=== PATIENT | female | born 1955 | race Caucasian/White ===

== ENCOUNTER 2018-09-15 15:14 | Outpatient (CLI) | payer MEDICARE | END 2018-09-15 15:15 | disposition home or self-care (01) | LOC: CTENTCT 15:14 | PROVIDERS: ATTEND Specialist | DX: J32.9 Chronic sinusitis, unspecified (principal) | CPT/HCPCS: 70486 ==

== ENCOUNTER 2019-07-03 14:21 | Emergency (ER) | payer MEDICARE ==
[2019-07-03 15:05] LABS: #Eosinphils 0.2 thou/uL (0.0-0.7); #Lymphocytes 1.5 thou/uL (1.20-3.40); #Monocytes 0.2 thou/uL (0.11-0.59); #Neutrophils 2.8 thou/uL (1.40-6.50); %Basophils 0.2 % (0.0-1.0); %Lymphocytes 31.6 % (21.0-51.0); %Monocytes 4.1 % (0.0-10.0); %Neutrophils 59.1 % (42.0-75.0); Hemoglobin 13.1 g/dL (12.0-16.0); Mean Corpuscular HGB CONC 34.3 g/dL (32.0-36.0); Mean Corpuscular Hemoglobin 32.9 pg (27.0-31.0); Mean Platelet Volume 9.7 fL (7.4-10.4); Platelet Count 22 thou/uL (130-400); RBC Distribution Width 11.9 % (11.5-14.5); Red Blood Cell (RBC) Count 3.97 mill/uL (4.20-5.40); White Blood Cell (WBC) Count 4.7 thou/uL (4.8-10.8)
== END 2019-07-03 17:32 | disposition home or self-care (01) ==
LOC: ERS 14:21
DX: D69.3 Immune thrombocytopenic purpura (principal); I10 Essential (primary) hypertension; Z87.891 Personal history of nicotine dependence; Z79.899 Other long term (current) drug therapy
CPT/HCPCS: 36430; 85025; 86850; 86900; 86901; 99283; P9035; 36415

== ENCOUNTER 2019-07-17 07:05 | Outpatient (CLI) | payer MEDICARE ==
--- NOTE | 2019-07-17 07:47 | ULT ---
Spleen ultrasound: 07/17/2019 COMPARISON: None HISTORY: Evaluate spleen size FINDINGS: Focused ultrasound of the left upper quadrant provided. The spleen measures 9.1 x 4.3 x 3.9 cm, within normal limits. IMPRESSION: Spleen is normal in size.
--- NOTE | 2019-07-17 08:08 | RAD ---
Chest 2 views HISTORY: Cough. FINDINGS: Cardiac silhouette and pulmonary vasculature are unremarkable. Mediastinum is midline. No c onfluent airspace consolidation, pneumothorax, or pleural fluid. Degenerative changes thoracic spine. IMPRESSION: No active cardiopulmonary abnormalities are demonstrated.
== END 2019-07-17 07:06 | disposition home or self-care (01) ==
LOC: BICULT 07:05
PROVIDERS: ATTEND Internal Medicine Medical Oncology
DX: R05 Cough (principal); R16.1 Splenomegaly, not elsewhere classified; D69.3 Immune thrombocytopenic purpura
CPT/HCPCS: 71046; 76705

== ENCOUNTER 2019-09-10 12:09 | Inpatient (IN) | payer MEDICARE ==
[2019-09-10 13:07] LABS: Bilirubin Negative (Negative); Blood, Urine Negative (Negative); Clarity Clear (Clear); Glucose, Urine (Dipstick) Normal (Negative); Leukocyte Negative Leu/uL (Negative); Nitrite Negative (Negative); Protein, Urine (Dipstick) 10 mg/dL (Neg-Trace); Urobilinogen Normal mg/dL (Less than 2)
[2019-09-10 13:09] LABS: Hemoglobin 16.3 g/dL (12.0-16.0); Mean Corpuscular HGB CONC 33.4 g/dL (32.0-36.0); Mean Corpuscular Hemoglobin 32.7 pg (27.0-31.0); Mean Corpuscular Volume 97.9 fL (78.0-98.0); RBC Distribution Width 12.9 % (11.5-14.5); Red Blood Cell (RBC) Count 4.98 mill/uL (4.20-5.40); White Blood Cell (WBC) Count 10.9 thou/uL (4.8-10.8)
[2019-09-10 13:15] LABS: Band 58 % (5-11); Lymphocytes 14 % (21-51); MDiff Complete? YES; Monocytes 1 % (0-10); Neutrophil 16 % (42-75); Platelet Count 106 thou/uL (130-400); Platelet Morphology Comment Appears Decreased; Polychromasia MODERATE = 3-4 cells (100X) (0-2/hpf); Reactive Lymphocytes 11 % (0-10); Reflex for Review?? NO
[2019-09-10 13:16] LABS: ALT (SGPT) 19 U/L (8-55); AST (SGOT) 13 U/L (5-34); Alkaline Phosphatase 66 U/L (40-110); Anion Gap 18 mmol/L (10-20); BUN (Urea Nitrogen) 13 mg/dL (9.8-20.1); Bilirubin, Total 1.6 mg/dL (0.2-1.2); Calc. Creatinine Clearance 0 mL/min (70-130); Calcium 9.8 mg/dL (7.8-10.44); Carbon Dioxide 24 mmol/L (23-31); Chloride 100 mmol/L (98-107); Estimated GFR-MDRD 67; Globulin 3.5 g/dL (2.4-3.5); Glucose 148 mg/dL (80-115); Potassium 3.6 mmol/L (3.5-5.1); Protein, Total 7.5 g/dL (6.0-8.3); Sodium 138 mmol/L (136-145)
[2019-09-10] MEDS ORDERED: Morphine 4 MG/ML VIAL ONE ×2 (13:28→14:15)
[2019-09-10] MEDS ORDERED: Ondansetron PF 4 MG/2 ML Vial ONE (13:28)
--- NOTE | 2019-09-10 13:55 | CT ---
EXAM: CT Abdomen Pelvis W Con PROVIDED CLINICAL HISTORY: Abdominal pain COMPARISON: None FINDINGS: The visualized lung bases are free of significant opacity. There is conspicuous fluid distention of t he stomach, a small hiatal hernia and evidence for distal esophageal fluid. Pneumoperitoneum is demonstrated. There is focal inflammatory fat stranding and extraluminal gas seen at the mid sigmoid colon. Numerous colonic diverticula are seen. There is a small amount of free fluid present about the right liver margin inferiorly. There is conspicuous fluid in the right paraco lic gutter. The liver, spleen, pancreas, kidneys and adrenal glands demonstrate an unremarkable CT appearance. Th ere are a few mildly prominent fluid-filled loops of small bowel likely reactive ileus. No evidence for bowel obstruction. Vascular calcifications are noted. The osseous structures demonstrate no concerning lytic or blastic lesions. IMPRESSION: 1. Findings compatible with perforated sigmoid diverticulitis. Results communicated to Dr. Pulliam 1:5 2 PM 09/10/2019. 2. Fluid density within the distal esophagus presumably reflects gastroesophageal reflux.
[2019-09-10] MEDS ORDERED: Cefepime 2 GM VIAL ONE (14:15)
[2019-09-10] MEDS ORDERED: Piperacillin/Tazobactam 4.5 GM VIAL ONE (14:15)
[2019-09-10] MEDS ORDERED: Iopamidol-370 76% 500 ML 1 ML ONE (14:37)
[2019-09-10] MEDS ORDERED: Acetaminophen 500 MG TAB ONE (14:55)
[2019-09-10] MEDS ORDERED: Ondansetron ODT 4 MG TAB PO PRN (15:33)
[2019-09-10] MEDS ORDERED: Acetaminophen 325 MG TAB PO PRN (15:33)
[2019-09-10] MEDS ORDERED: Ondansetron PF 4 MG/2 ML Vial IVP PRN (15:33)
[2019-09-10 15:41] LABS: Lactic Acid 3.3 mmol/L (0.5-2.2)
[2019-09-10] MEDS ORDERED: Sodium Chloride 0.9% 1,000 ML IV SCH (15:45)
[2019-09-10] MEDS ORDERED: Morphine 4 MG/ML VIAL SLOW IVP PRN (15:49)
[2019-09-10] MEDS ORDERED: Morphine 2 MG/ML SYRINGE SLOW IVP PRN ×2 (15:49→16:21)
--- NOTE | 2019-09-10 16:07 | PDOC.FPRHP ---
- History of Present Illness Chief Complaint: abdominal pain History of Present Illness: Pt is a 64-yo F w/ Hx of ITP, HTN, SIDNEY who presents after having abdominal pain starting around 2030 last night. Pain is diffuse and stabbing, described as severe. She feels bloated. Denies passing flatus, constipation, or diarrhea. Last BM was last night and well formed. She vomited 2x of [place] food last night. No vomiting today. She has never had diverticulitis before. Reports her last colonoscopy was 6-7 years ago and said everything was normal. Told to return in 10 years. Denies hematochezia, hematuria. + dysuria at times. ED Course: Received 1L NS in ER, cefepime, zosyn, morphine, zofran. - History PMHx: ITP, HTN, SIDNEY on CPAP, severe outdoor allergies, morbid obesity PSHx: x2. Colonoscopy x1. FHx: Father, dcsd: HTN Mother, dcsd: [place] x1 Social: Former smoker: hx of 10 pack years. Denies alcohol and drug use. - Review of Systems General: denies: fever/chills, weight/appetite/sleep changes, fatigue Eyes: denies: vision changes ENT: reports: nasal congestion, rhinorrhea (chronic allergies) Respiratory: denies: cough, congestion, shortness of breath Cardiovascular: reports: other (lightheaded). denies: chest pain, edema, orthopnea Gastrointestinal: reports: nausea, vomiting, abdominal pain. denies: diarrhea, constipation, GI bleeding Genitourinary: reports: dysuria Skin: denies: rashes Musculoskeletal: reports: arthritis/arthralgias (intermittent w/ ITP symptoms). denies: pain, swelling Neurological: denies: syncope Psychological: denies: anxiety, depression - Vital signs BP: 93/51 HR: 115 RR: 30 Temp: afebrile Pox: 94% on 1L NC - Physical Exam Constitutional: NAD, awake, alert and oriented HEENT: normocephalic and atraumatic, conjunctiva clear, grossly normal vision, grossly normal hearing, MMM, oropharynx clear Neck: supple, trachea midline, no LAD, no thyromegaly Heart: normal S1/S2 (tachycardia), no murmurs/rubs/gallops, pulses present, no edema Lungs: CTAB, no respiratory distress, no wheezing -Abdomen: markedly taut and distended, marked TTP diffusely, no rebound tenderness, hypertympanic on percussion, hypoactive bowel sounds. Musculoskeletal: normal structure, normal tone Neurological: no focal deficit Skin: no rash/lesions Heme/Lymphatic: no unusual bruising or bleeding, no purpura Psychiatric: normal mood and affect FMR H&P: Results - Labs Result Diagrams: 09/11/19 03:33 09/11/19 03:33 Lab results: WBC 10.9 thou/uL (4.8-10.8) H 09/10/19 12:26 Hgb 16.3 g/dL (12.0-16.0) H 09/10/19 12:26 Hct 48.8 % (36.0-47.0) H 09/10/19 12:26 MCV 97.9 fL (78.0-98.0) 09/10/19 12:26 Plt Count 106 thou/uL (130-400) L 09/10/19 12:26 Band Neuts % (Manual) 58 % (5-11) H 09/10/19 12:26 Sodium 138 mmol/L (136-145) 09/10/19 12:26 Potassium 3.6 mmol/L (3.5-5.1) 09/10/19 12:26 Chloride 100 mmol/L (98-107) 09/10/19 12:26 Carbon Dioxide 24 mmol/L (23-31) 09/10/19 12:26 BUN 13 mg/dL (9.8-20.1) 09/10/19 12:26 Creatinine 0.85 mg/dL (0.6-1.1) 09/10/19 12:26 Glucose 148 mg/dL (80-115) H 09/10/19 12:26 Lactic Acid 3.3 mmol/L (0.5-2.2) H 09/10/19 15:16 Calcium 9.8 mg/dL (7.8-10.44) 09/10/19 12:26 Total Bilirubin 1.6 mg/dL (0.2-1.2) H 09/10/19 12:26 AST 13 U/L (5-34) 09/10/19 12:26 ALT 19 U/L (8-55) 09/10/19 12:26 Alkaline Phosphatase 66 U/L (40-110) 09/10/19 12:26 Serum Total Protein 7.5 g/dL (6.0-8.3) 09/10/19 12:26 Albumin 4.0 g/dL (3.4-4.8) 09/10/19 12:26 Lipase 19 U/L (8-78) 09/10/19 12:29 Urine Ketones Negative mg/dL (Negative) 09/10/19 12:44 Urine Blood Negative (Negative) 09/10/19 12:44 Urine Nitrite Negative (Negative) 09/10/19 12:44 Ur Leukocyte Esterase Negative Mario Alberto/uL (Negative) 09/10/19 12:44 - EKG Interpretation EKG: sinus tachycardia, possible ST depression in inferior leads - Radiology Interpretation CT scan - abdomen Status: image reviewed by me, report reviewed by me FMR H&P: A/P - Problem List (1) Diverticulitis large intestine Current Visit: Yes Status: Acute Code(s): K57.32 - DVTRCLI OF LG INT W/O PERFORATION OR ABSCESS W/O BLEEDING (2) HTN (hypertension) Current Visit: Yes Status: Acute Code(s): I10 - ESSENTIAL (PRIMARY) HYPERTENSION (3) SIDNEY on CPAP Current Visit: Yes Status: Acute Code(s): G47.33 - OBSTRUCTIVE SLEEP APNEA ( ADULT) (PEDIATRIC); Z99.89 - DEPENDENCE ON OTHER ENABLING MACHINES AND DEVICES (4) Chronic ITP (idiopathic thrombocytopenia) Current Visit: Yes Status: Acute Code(s): D69.3 - IMMUNE THROMBOCYTOPENIC PURPURA - Plan 64-yo F w/ multiple comorbidities admitted for: Sepsis 2/2 acute diverticulitis Perforation of Sigmoid Colon - lactic acidosis - tachycardic, hypotensive meeting sepsis criteria - CT abdomen: showing free air and free fluid indicating perforation of sigmoid colon - Gen surg consulted, Dr. Sullivan would like to pursue non-operative mgmt at this time. Appreciate recs. - Received cefepime and zosyn in ER, will give levaquin and flagyl IV - Fluid resuscitate w/ LR and 200mL/hr - monitor on IMCU - pain control: ENGINEERING TECHNICIAN PARKING pump dilaudid per Surgery HTN - hold home meds until hypotension improves SIDNEY - CPAP at night. Does not know settings. ITP - Recently diagnosed 2018. Denies hx of influenza or H1N1 infection. - Takes steroids for 4 days per month. Yesterday 09/08 was supposed to be her 4th day of steroids but pt was afraid to take the medicine due to N/V Severe seasonal allergies - continue doxepin and montelukast Obesity Code: FULL Diet: NPO, strict VTE ppx: SCDs only due to ITP/low platelets at baseline Fluids: LR at 200 mL/hr GI ppx: pepcid Abx: metronidazole Dispo: admit to IMCU. LOS > 48 H. Disposition/LOS: admit to surgical floor as inpatient. LOS > 48 H. FMR H&P: Upper Level - Pertinent history 64 yo F w/ PMH of HTN, OTP whp presents with one day history of acute onset abd pain with NV. Pt reports abd pain started yesterday evening and worsened throughout the night. She had ct abd pelvis in ED which showed perforated sigmpoid diverticulitis. Gen surg consulted in ED, recommends medical managment with IV abx and pain control. - Pertinent findings ROS: As above PE: Gen: Mod discomfort, tachycardic and borderline BP HEENT: NCAT, PERRLA, EOMI Resp: CTABL CV: Tachycardic, regular rhythm no mrg Abd: Distended, hypertympanic, diffuse guarding, no rebound tenderness Ext: No clubbing cyanosiis or edema, good pulses throughout Neuro: No focal deficit Psych: Normal mood affect - Plan Date/Time: 09/10/19 1605 I, Cornell Luis DO, have evaluated this patient and agree with findings/ plan as outlined by intern product marketing manager resident. Pertinent changes/additions are listed here. 1) Acute sigmoid diverticulitis with perforation - gen surg consulted, appreciate recommendations - levaquin and flagyl IV abx - monitor for worsening abd exam, serial exams 2) Lactic acidosis - 2/2 above - aggressive IVF hydration and trend Dispo: Guarded, admit to IMCU and monitor bp. Aggressive IVF hydration and serial abd exams. Cont IV abx and pain control per gen surg. Addendum - Attending - Attending Attestation Date/Time: 09/11/19 1036 I personally evaluated the patient and discussed the management with Dr. Ward yesterday. I agree with the History, Examination, Assessment and Plan documented above with any addition or exceptions noted below. See my separate note at time of admission.
[2019-09-10 16:35] LABS: Troponin I Less than 0.010 ng/mL (< 0.028)
[2019-09-10] MEDS ORDERED: Naloxone HCl 0.4 mg/ml Vial IV PRN (16:39)
[2019-09-10] MEDS ORDERED: diphenhydrAMINE 25 MG CAP PO PRN (16:39)
[2019-09-10] MEDS ORDERED: diphenhydrAMINE 50 MG/ML VIAL IVP PRN (16:39)
[2019-09-10] MEDS ORDERED: diphenhydrAMINE 50 MG/ML VIAL IM PRN (16:39)
[2019-09-10] MEDS ORDERED: Promethazine HCl 25 MG/ML VIAL IM PRN (16:39)
[2019-09-10] MEDS ORDERED: HYDROmorphone 0.5 MG/0.5 ML SYRINGE ONE (16:44)
[2019-09-10] MEDS ORDERED: Communication Order-Pharmacy FS SCH (16:45)
--- NOTE | 2019-09-10 17:25 | PDOC.BPN ---
- Brief Progress Note Date/Time: 09/10/19 6230 I personally evaluated the patient and discussed the management with Dr. Ward and Toby. I agree with the History, Examination, Assessment and Plan documented above with any addition or exceptions noted below. We are treating for perforated diverticulitis with empiric coverage for aerobes and anaerobes. We are admitting to IMCU for close monitoring in light of her tachycardia and borderline low blood pressure. We appreciate general surgery's recommendations and care.
[2019-09-10 17:35] LABS: Lactic Acid 3.1 mmol/L (0.5-2.2)
[2019-09-10] MEDS ORDERED: Lactated Ringer's 1,000 ML IV SCH (18:30)
[2019-09-10] MEDS ORDERED: HYDROmorphone 10 mg/100 ml CADD IVPB PRN (18:45)
[2019-09-10] MEDS: Lactated Ringer's 1,000 ML IV SCH (21:24)
[2019-09-10] MEDS: metroNIDAZOLE 500 MG in Premix Bag 1 BAG IVPB SCH (21:27)
[2019-09-10] MEDS: Famotidine/PF 20 mg/2ml Vial SLOW IVP SCH (21:32)
[2019-09-10] MEDS ORDERED: metroNIDAZOLE 500 MG in Premix Bag 1 BAG IVPB SCH (22:00)
[2019-09-10] MEDS ORDERED: Cefepime 2 GM in Sodium Chloride 0.9% 100 ML IVPB SCH (22:00)
[2019-09-10 22:50] VITALS: BMI 41.1
--- NOTE | 2019-09-10 23:15 | CON ---
DATE OF CONSULTATION: 09/10/2019 HISTORY OF PRESENT ILLNESS: The patient is a 64-year-old woman who presented to the emergency department with acute onset of abdominal pain approximately 2000 hours previous night, then increased nerve pain and she started having some abdominal distention. She was brought to the emergency department by her , where she underwent evaluation and examination. Then, her CT was consistent with a perforated sigmoid diverticulum. She would be admitted by the [facility], and we were asked to see her in consultation to evaluate her for possible surgical intervention. The patient denied vomiting, though she did have episodes of nausea. She denies passing flatus in the last 12 hours. She denies diarrhea or ill contacts. Her last bowel movement was last night. She denies fevers, chills, or loss of weight. ALLERGIES: NO KNOWN DRUG ALLERGIES. CURRENT MEDICATIONS: Valsartan. PAST MEDICAL HISTORY: Hypertension, ITP, borderline anemia, and multiple environmental allergies. PAST SURGICAL HISTORY: x2. The patient had a colonoscopy approximately 10 years ago. SOCIAL HISTORY: The patient quit smoking greater than 10 years ago. She drinks rarely. Denies drug use. She lives at home with family. REVIEW OF SYSTEMS: A 10-point review of systems is negative except as otherwise stated. PHYSICAL EXAMINATION: VITAL SIGNS: Blood pressure 137/76, heart rate 111, respirations 17, oxygen saturation 98% on 2 L via nasal cannula, and temperature 98.4. GENERAL: The patient is resting comfortably in bed. She is currently in [facility] bed. She is awake, alert, conversant, appropriate. HEENT: Unremarkable. LUNGS: Clear to auscultation bilaterally. HEART: Regular rate and rhythm. ABDOMEN: Soft, slightly distended with tenderness to palpation to her right lower quadrant. She has no gross peritoneal signs, but definitely has tenderness to palpation in the right lower quadrant, plus-minus rebound tenderness on the right. No rebound tenderness on the left. Negative Rovsing sign. Bowel sounds are hypoactive. EXTREMITIES: Neurovascularly intact x4. LABORATORY FINDINGS: White blood cell count 10.9, hemoglobin 16.3, hematocrit 48.4, and platelets 106. Sodium 138, potassium 3.6, chloride 100, CO2 of 24, BUN 13, creatinine 0.85, glucose 148, and lactic acid 3.1. Troponin negative x2. Lipase 19. LFTs are unremarkable with the exception of total bilirubin of 1.6. Urinalysis is unremarkable. RADIOGRAPHIC REPORTS: CT of the abdomen and pelvis with IV contrast shows findings compatible with perforated sigmoid diverticulitis. ASSESSMENT: 1. Acute abdominal pain. 2. Perforated sigmoid diverticulitis. PLAN: Will be to keep the patient n.p.o., IV antibiotics per the primary team. Bowel rest. Pain control currently with Dilaudid DEPUTY SHERIFF LIEUTENANT. Serial exams, repeat labs in the morning. We will re-evaluate her in the morning. The patient was evaluated in the emergency department by Dr. Sullivan. Dr. Sullivan discussed the treatment plan with the patient to include possible surgical intervention if conservative treatment fails. This included laparotomy with sigmoid colon resection with colostomy. Job ID: [id number]
[2019-09-11 04:01] LABS: Lactic Acid 1.9 mmol/L (0.5-2.2)
[2019-09-11] MEDS: metroNIDAZOLE 500 MG in Premix Bag 1 BAG IVPB SCH ×3 (04:08→21:11)
[2019-09-11] MEDS: Lactated Ringer's 1,000 ML IV SCH ×5 (04:08→23:06)
[2019-09-11 04:30] LABS: ALT (SGPT) 16 U/L (8-55); AST (SGOT) 25 U/L (5-34); Albumin 2.7 g/dL (3.4-4.8); Alkaline Phosphatase 47 U/L (40-110); Anion Gap 11 mmol/L (10-20); BUN (Urea Nitrogen) 13 mg/dL (9.8-20.1); Bilirubin, Total 1.6 mg/dL (0.2-1.2); Calc. Creatinine Clearance 139 mL/min (70-130); Calcium 8.3 mg/dL (7.8-10.44); Carbon Dioxide 22 mmol/L (23-31); Chloride 106 mmol/L (98-107); Estimated GFR-MDRD 87; Glucose 101 mg/dL (80-115); Potassium 3.9 mmol/L (3.5-5.1); Protein, Total 5.7 g/dL (6.0-8.3); Sodium 135 mmol/L (136-145)
[2019-09-11 04:32] LABS: Band 56 % (5-11); Dohle Bodies SLIGHT; Hemoglobin 13.9 g/dL (12.0-16.0); Lymphocytes 19 % (21-51); MDiff Complete? YES; Mean Corpuscular HGB CONC 32.6 g/dL (32.0-36.0); Mean Corpuscular Hemoglobin 32.6 pg (27.0-31.0); Mean Corpuscular Volume 99.8 fL (78.0-98.0); Mean Platelet Volume 8.6 fL (7.4-10.4); Metamyelocyte 12 % (0-0); Monocytes 2 % (0-10); Neutrophil 11 % (42-75); Platelet Count 67 thou/uL (130-400); Platelet Morphology Comment Appears Decreased; Red Blood Cell (RBC) Count 4.26 mill/uL (4.20-5.40); White Blood Cell (WBC) Count 8.6 thou/uL (4.8-10.8)
--- NOTE | 2019-09-11 05:54 | PDOC.FM ---
- Subjective Subjective: Pt's pain is improved this morning. Denies N/V. Still somewhat tachycardic overnight w/ BP ranging from SBP 80-130. - Objective MAR Reviewed: Yes Vital Signs & Weight: Vital Signs (12 hours) Temp 09/11/19 04:00 98.2 F 09/10/19 23:18 98.2 F 09/10/19 19:54 100.1 F H Weight Weight 108.522 kg Most Recent Monitor Data Heart Rate from ECG 109 NIBP 92/71 NIBP BP-Mean 78 Respiration from ECG 21 SpO2 99 Result Diagrams: 09/11/19 03:33 09/11/19 03:33 Phys Exam - Physical Examination Constitutional: NAD Respiratory: no wheezing, clear to auscultation bilateral tachycardic, no murmur distended, softer than previous exam, hypoactive BS, mod TTP RLQ>other area Musculoskeletal: no edema, pulses present Psychiatric: normal affect, A&O x 3 Dx/Plan (1) Diverticulitis large intestine Code(s): K57.32 - DVTRCLI OF LG INT W/O PERFORATION OR ABSCESS W/O BLEEDING Status: Acute (2) HTN (hypertension) Code(s): I10 - ESSENTIAL (PRIMARY) HYPERTENSION Status: Acute (3) SIDNEY on CPAP Code(s): G47.33 - OBSTRUCTIVE SLEEP APNEA (ADULT) (PEDIATRIC); Z99.89 - DEPENDENCE ON OTHER ENABLING MACHINES AND DEVICES Status: Acute (4) Chronic ITP (idiopathic thrombocytopenia) Code(s): D69.3 - IMMUNE THROMBOCYTOPENIC PURPURA Status: Acute - Plan Plan: 64-yo F w/ multiple comorbidities admitted for: Sepsis 2/2 acute diverticulitis Perforation of Sigmoid Colon - lactic acidosis: resolved - CT abdomen: showing free air and free fluid indicating perforation of sigmoid colon - Gen surg consulted, Dr. Sullivan would like to pursue non-operative mgmt. Appreciate recs. - Received cefepime and zosyn in ER, will give levaquin and flagyl IV - Fluid resuscitate w/ LR at 200mL/hr - monitor on IMCU - pain control: MANUFACTURING SOFTWARE ENGINEER pump dilaudid per Surgery HTN - hold home meds until hypotension improves SIDNEY - CPAP at night. Does not know settings. ITP - Recently diagnosed 2018. Denies hx of influenza or H1N1 infection. - Takes steroids for 4 days per month. Yesterday 09/08 was supposed to be her 4th day of steroids but pt was afraid to take the medicine due to N/V Severe seasonal allergies - continue doxepin and montelukast Obesity Code: FULL Diet: NPO, strict VTE ppx: SCDs only due to ITP/low platelets at baseline Fluids: LR at 200 mL/hr GI ppx: pepcid Abx: metronidazole Dispo: admit to IMCU. LOS > 48 H. Disposition/LOS: admit to surgical floor as inpatient. LOS > 48 H.
[2019-09-11] MEDS: Famotidine/PF 20 mg/2ml Vial SLOW IVP SCH ×2 (09:30→21:11)
--- NOTE | 2019-09-11 11:24 | PRG ---
DATE OF SERVICE: 09/11/2019 SUBJECTIVE: Ms. Elliott is a pleasant 64-year-old lady, who was admitted yesterday with a perforated diverticulum. She demonstrated free air under the diaphragms. She was seen in consultation by the Surgery Service and they have elected conservative management with NG suctioning, IV fluids and broad-spectrum antibiotics. Should she deteriorate, She would be taken for surgery. OBJECTIVE: GENERAL: This morning, she is awake and alert. Still in a great deal of pain, but this is well managed with her pain pump. VITAL SIGNS: Stable. Blood pressure is 104/67, respirations are 20, and her pulse rate is 82. ABDOMEN: plate drying machine tender and distended and unchanged from yesterday. We will continue to follow with the Surgery Service with close attention to her electrolytes and any signs of infection. Job ID: [id number]
--- NOTE | 2019-09-11 12:44 | PRG ---
DATE OF SERVICE: 09/11/2019 SUBJECTIVE: The patient is a 64-year-old woman, presented to the emergency department with acute onset of abdominal pain, last night. She, at that time endorsed abdominal distension. Yesterday, she received morphine and was started on Dilaudid pump. She states that with this, her abdominal pain is more tolerable. Otherwise, she had no acute symptomatic hypertensive events last night, but it was noted that her blood pressure fluctuated by the nurse. She remained tachycardic overnight as well. She denies having a bowel movement at this time and has not passed flatus. She denied fevers or chills. OBJECTIVE: VITAL SIGNS: Heart rate 108, blood pressure 100/67, respiratory rate 22, oxygen saturation 100% on 2 L nasal cannula oxygen, and temperature 99.6. GENERAL: The patient resting in bed with her at bedside. HEENT: Unremarkable. LUNGS: No respiratory distress, equal rise bilaterally. ABDOMEN: Slightly distended with tenderness, most notably to the left lower quadrant, no rebound tenderness. EXTREMITIES: Neurovascularly intact x4. LABORATORY FINDINGS: White blood cell count 8.6, hemoglobin 13.9, hematocrit 42.5, and platelet count 67. Sodium 135, potassium 3.9, and creatinine 0.68. GFR 87 , BUN 13, lactic acid 1.9, and bilirubin 1.6. Troponin negative. ASSESSMENT: 1. Acute abdominal pain. 2. Perforated sigmoid diverticulitis. 3. Immune thrombocytopenic purpura. PLAN: The plan is to continue medical management of her perforated diverticulitis. We will continue her on Dilaudid and maximize pain control if needed. We would like to continue Levaquin and metronidazole at this time. She will likely need considerable amount of time if medical therapy is successful. We are hopeful that her abdominal pain and vital signs remain stable, afebrile to hopefully transition to outpatient care and down the road colonoscopy, then colectomy with anastomosis. If the patient was to turn for the worst and require surgery while inpatient, she will require a colectomy with ostomy. We also encouraged walking as we do not want the patient to suffer from a DVT. The patient will be kept n.p.o. at this time. We will fluid resuscitate. We will reassess tomorrow. Pt seen and evaluated with Dr. Sullivan at bedside. Job ID: [id number] [facility]
[2019-09-11] MEDS ORDERED: cefTRIAXone\\ROCEPHIN 2 GM in Sodium Chloride 0.9% 100 ML IVPB SCH (15:00)
--- NOTE | 2019-09-12 01:28 | PRG ---
DATE OF SERVICE: 09/12/2019 SUBJECTIVE: The patient remains in the IMCU. She is a patient we are seeing in consultation for a perforated sigmoid diverticulum. She is currently being treated with IV antibiotics. She has remained n.p.o. She denies nausea or vomiting and also denies passing any flatus at this time. She states that her pain is improved, and she is using her Dilaudid MANUFACTURING FINANCE MANAGER less frequently. She has been out of bed and ambulated. By nursing report, the patient is scheduled to go to the medical floor when a bed is available. PHYSICAL EXAMINATION: VITAL SIGNS: Stable. Heart rate remains slightly tachycardic. GENERAL: The patient is resting comfortably in bed. She is awake, alert, conversant, and appropriate. ABDOMEN: Looks less distended tonight. The right lower quadrant pain has improved since my exam last night shows no gross peritoneal signs. ASSESSMENT AND PLAN: 1. Acute abdominal pain. 2. Perforated sigmoid diverticulitis. 3. History of immune thrombocytopenic purpura. Plan will be to continue medical management. Encourage out of bed, ambulation, then we will reassess again in the morning. Job ID: [id number]
[2019-09-12] MEDS: Lactated Ringer's 1,000 ML IV SCH ×4 (04:03→18:08)
[2019-09-12] MEDS: metroNIDAZOLE 500 MG in Premix Bag 1 BAG IVPB SCH ×3 (04:03→20:54)
--- NOTE | 2019-09-12 05:50 | PDOC.FM ---
- Subjective Subjective: Pt's abdominal pain is improved today. STill using FUNERAL ARRANGEMENT DIRECTOR pump. She is not hungry. No n/v. No appetite. - Objective MAR Reviewed: Yes Vital Signs & Weight: Vital Signs (12 hours) Temp Pulse Resp BP Pulse Ox 09/12/19 04:34 98.2 F 108 H 20 118/78 92 L 09/11/19 23:05 98.2 F 110 H 20 115/64 92 L 09/11/19 19:21 97.9 F Weight Weight 108.522 kg Most Recent Monitor Data Heart Rate from ECG 109 NIBP 105/64 NIBP BP-Mean 77 Respiration from ECG 25 SpO2 91 I&O: 09/10/19 09/11/19 09/12/19 06:59 06:59 06:59 Intake Total 2177 3050 Output Total 1000 1150 Balance 1177 1900 Result Diagrams: 09/12/19 07:49 09/12/19 07:49 Phys Exam - Physical Examination Constitutional: NAD Respiratory: clear to auscultation bilateral Cardiovascular: RRR Gastrointestinal: soft (moderate distension, hypoactive BS, improved) Musculoskeletal: no edema Psychiatric: normal affect, A&O x 3 Skin: no rash Dx/Plan (1) Diverticulitis large intestine Code(s): K57.32 - DVTRCLI OF LG INT W/O PERFORATION OR ABSCESS W/O BLEEDING Status: Acute (2) HTN (hypertension) Code(s): I10 - ESSENTIAL (PRIMARY) HYPERTENSION Status: Acute (3) SIDNEY on CPAP Code(s): G47.33 - OBSTRUCTIVE SLEEP APNEA (ADULT) (PEDIATRIC); Z99.89 - DEPENDENCE ON OTHER ENABLING MACHINES AND DEVICES Status: Acute (4) Chronic ITP (idiopathic thrombocytopenia) Code(s): D69.3 - IMMUNE THROMBOCYTOPENIC PURPURA Status: Acute - Plan Plan: 64-yo F w/ multiple comorbidities admitted for: Sepsis 2/2 acute diverticulitis Perforation of Sigmoid Colon - lactic acidosis: resolved - CT abdomen: showing free air and free fluid indicating perforation of sigmoid colon - Gen surg consulted, Dr. Sullivan would like to pursue non-operative mgmt. Appreciate recs. - levaquin and flagyl IV - Fluid resuscitate w/ LR at 200mL/hr - monitor on IMCU - pain control: FUNERAL ARRANGEMENT DIRECTOR pump dilaudid per Surgery HTN - hold home meds until hypotension improves SIDNEY - CPAP at night. Does not know settings. ITP - Recently diagnosed 2018. Denies hx of influenza or H1N1 infection. - Takes steroids for 4 days per month. - Takes promacta at home, only PO. If okay w/ surgery, would like to continue. Surgery spoke w/ ase master mechanic. - monitor platelets. Severe seasonal allergies - continue doxepin and montelukast Obesity Code: FULL Diet: NPO, strict VTE ppx: SCDs only due to ITP/low platelets at baseline Fluids: LR at 200 mL/hr GI ppx: pepcid Abx: metronidazole, levaquin IV Disposition/LOS: admit to surgical floor as inpatient. LOS > 48 H.
[2019-09-12 08:19] LABS: Hemoglobin 12.4 g/dL (12.0-16.0); Mean Corpuscular HGB CONC 32.7 g/dL (32.0-36.0); Mean Corpuscular Hemoglobin 32.6 pg (27.0-31.0); Mean Corpuscular Volume 99.5 fL (78.0-98.0); Mean Platelet Volume 9.1 fL (7.4-10.4); Platelet Count 46 thou/uL (130-400); RBC Distribution Width 12.7 % (11.5-14.5); Red Blood Cell (RBC) Count 3.82 mill/uL (4.20-5.40); White Blood Cell (WBC) Count 11.1 thou/uL (4.8-10.8)
[2019-09-12 08:37] LABS: Anion Gap 12 mmol/L (10-20); BUN (Urea Nitrogen) 11 mg/dL (9.8-20.1); Calc. Creatinine Clearance 166 mL/min (70-130); Calcium 8.8 mg/dL (7.8-10.44); Carbon Dioxide 23 mmol/L (23-31); Chloride 104 mmol/L (98-107); Estimated GFR-MDRD Greater than 90; Glucose 104 mg/dL (80-115); Potassium 3.5 mmol/L (3.5-5.1); Sodium 135 mmol/L (136-145)
[2019-09-12 08:55] LABS: Band 48 % (5-11); Lymphocytes 5 % (21-51); MDiff Complete? YES; Monocytes 1 % (0-10); Neutrophil 45 % (42-75); Platelet Morphology Comment Appears Decreased; Polychromasia SLIGHT = 2-3 cells (100X) (0-2/hpf); Reactive Lymphocytes 1 % (0-10)
[2019-09-12] MEDS: Famotidine/PF 20 mg/2ml Vial SLOW IVP SCH ×2 (09:29→20:54)
[2019-09-12] MEDS ORDERED: traMADol HCl 50 MG TAB PO PRN (11:22)
--- NOTE | 2019-09-12 11:55 | PRG ---
DATE OF SERVICE: 09/12/2019 Ms. Elliott is a bit more comfortable this morning. Abdomen is still slightly distended, but less so from yesterday. She still not had passing of gas or bowel movement. We continue to follow with the Surgery Service and she maintains on broad-spectrum IV antibiotics. Her labs this morning show hemoglobin at 12.4, hematocrit 38 with an MCV of 95. Electrolytes, sodium 135, potassium 3.5, chloride 104, bicarb 23, BUN 11, creatinine 0.57. We will continue to follow with the Surgery Service. Job ID: [id number]
[2019-09-12] MEDS: Acetaminophen 500 MG TAB PO SCH ×2 (12:05→18:04)
[2019-09-12] MEDS ORDERED: Enoxaparin Sodium 40 MG/0.4 ML SYRINGE SC SCH (12:45)
--- NOTE | 2019-09-12 12:45 | PRG ---
DATE OF SERVICE: 09/12/2019 SUBJECTIVE: The patient is a 64-year-old woman, who presented to the emergency department with acute onset of abdominal pain. She has been receiving Dilaudid for her pain at this time. She has been trialed on medication management versus taking back for surgery. She had no acute overnight events. She states that her pain is getting better and she does remain with abdominal distention. She denied fevers , hypertension, or lightheadedness. She has not passed flatus or had a bowel movement either. OBJECTIVE: VITAL SIGNS: Heart rate 108, temperature 98.2, respirations 20, 92 % on room air, and blood pressure 118/78. GENERAL: The patient is resting in bed with her at bedside. HEENT: Unremarkable. LUNGS: No respiratory distress, equal rise bilaterally. ABDOMEN: Slightly distended with tenderness mostly localized to the left lower quadrant. No rebound tenderness. LABORATORY FINDINGS: White blood cell count 11.1, hemoglobin 12.4, hematocrit 38.0, platelet count 46, neutrophil percent 48. Sodium 135, potassium 3.5, BUN 11, creatinine 0.57. Blood cultures, no growth to date. Urine culture, no growth to date. ASSESSMENT: 1. Acute abdominal pain. 2. Perforated sigmoid diverticulitis. 3. Idiopathic thrombocytopenic purpura. PLAN: Plan is to continue medical management for her perforated diverticulitis. Pain is decently tolerated at this time, so we will discontinue the Dilaudid pump. She is also fairly somnolent. We encouraged the patient to stay active to help with bowel control and decrease risk of DVT and PE. We will start her on Tylenol 1000 mg daily, tramadol 50 mg q.6 hours for mild pain and tramadol 100 mg q.6 hours for moderate pain. Otherwise, the patient will be started on VTE prophylaxis. Discussed ITP with the patient's workers compensation claims adjuster group, who would like for her to continue the Promacta. This is p.o. medication, which we will allow medications with sips of water. Otherwise, the patient is to remain n.p.o. If any issues arise, the workers compensation claims adjuster group would like to be notified. Of note, her workers compensation claims adjuster is Dr. Nguyen. Pt was seen and evaluated with Dr. Sullivan at bedside. Job ID: [id number] [facility]
[2019-09-12] MEDS: ELTROMBOPAG OLAMINE 50 MG PO SCH (13:00)
[2019-09-12] MEDS: Benzonatate 100 MG CAP PO PRN (19:34)
--- NOTE | 2019-09-12 23:10 | PRG ---
DATE OF SERVICE: 09/12/2019 SUBJECTIVE: The patient is currently on the medical floor. We are seeing her in consultation for a perforated diverticulum. She is being treated medically at this time. She remains n.p.o. She denies flatus or bowel movement. She has been out of bed and ambulating. She states her pain has improved. PHYSICAL EXAMINATION: VITAL SIGNS: Stable. The patient is afebrile. GENERAL: The patient is resting comfortably in bed. ABDOMEN: Soft with less tenderness than from my previous exams, though, she does still have abdominal distention and it appears that she has hypoactive bowel sounds. ASSESSMENT: 1. Acute abdominal pain. 2. Perforated sigmoid diverticulitis, under medical management at this time. 3. Idiopathic thrombocytopenic purpura. PLAN: Plan will be to continue current medical management, antibiotics, and serial exams. Encourage out of bed and remain n.p.o. The patient may have sips of water with her medications. Job ID: [id number]
[2019-09-13] MEDS: Acetaminophen 500 MG TAB PO SCH ×5 (00:03→23:06)
[2019-09-13] MEDS ORDERED: guaiFENesin 100 MG/5 ML UDCUP PO PRN (01:55)
[2019-09-13] MEDS: Lactated Ringer's 1,000 ML IV SCH ×4 (01:57→21:02)
[2019-09-13] MEDS: Diabetic Tussin 200 MG/10 ML UDCUP PO PRN ×2 (02:05→20:14)
[2019-09-13] MEDS: metroNIDAZOLE 500 MG in Premix Bag 1 BAG IVPB SCH (02:06)
[2019-09-13] MEDS: Benzonatate 100 MG CAP PO PRN ×2 (02:06→20:15)
[2019-09-13] MEDS ORDERED: diphenhydrAMINE 25 MG CAP PO SCH (04:45)
--- NOTE | 2019-09-13 06:30 | PDOC.FM ---
- Subjective Subjective: Pt reports her pain is much better today. She is only needing Tylenol to control her pain. + flatus. Otherwise, coughed a lot overnight. Received cough syrup, benadryl, and tessalon pearls which helped her go to sleep. - Objective MAR Reviewed: Yes Vital Signs & Weight: Vital Signs (12 hours) Temp Pulse Resp BP Pulse Ox 09/12/19 20:00 98.1 F 99 20 141/77 H 95 Weight Weight 108.522 kg Most Recent Monitor Data Heart Rate from ECG 109 NIBP 105/64 NIBP BP-Mean 77 Respiration from ECG 25 SpO2 91 I&O: 09/11/19 09/12/19 09/13/19 06:59 06:59 06:59 Intake Total 2177 3050 1900 Output Total 1000 1150 603 Balance 1177 1900 1297 Result Diagrams: 09/12/19 07:49 09/13/19 05:48 Phys Exam - Physical Examination Constitutional: NAD Respiratory: no wheezing, clear to auscultation bilateral Cardiovascular: RRR Gastrointestinal: soft, non-tender (mild distension, obese), positive bowel sounds (normoactive today, much improved) Musculoskeletal: no edema (SCDs on) Psychiatric: normal affect, A&O x 3 Dx/Plan (1) Diverticulitis large intestine Code(s): K57.32 - DVTRCLI OF LG INT W/O PERFORATION OR ABSCESS W/O BLEEDING Status: Acute (2) HTN (hypertension) Code(s): I10 - ESSENTIAL (PRIMARY) HYPERTENSION Status: Acute (3) SIDNEY on CPAP Code(s): G47.33 - OBSTRUCTIVE SLEEP APNEA (ADULT) (PEDIATRIC); Z99.89 - DEPENDENCE ON OTHER ENABLING MACHINES AND DEVICES Status: Acute (4) Chronic ITP (idiopathic thrombocytopenia) Code(s): D69.3 - IMMUNE THROMBOCYTOPENIC PURPURA Status: Acute - Plan Plan: 64-yo F w/ multiple comorbidities admitted for: Sepsis 2/2 acute diverticulitis Perforation of Sigmoid Colon - Gen surg consulted, Dr. Sullivan would like to pursue non-operative mgmt. Appreciate recs. - levaquin and flagyl IV - Fluid resuscitate w/ LR - pain control, Tylenol. HTN - restart today SIDNEY - CPAP at night. ITP - restarted home promacta Severe seasonal allergies - continue doxepin and montelukast - manage cough symptoms while patient is here Obesity Code: FULL Diet: NPO, meds w/ sip. VTE ppx: SCDs, LVX. Frequent ambulation. Fluids: LR at 150 mL/hr GI ppx: pepcid Abx: metronidazole, levaquin IV Disposition/LOS: admit to surgical floor as inpatient. LOS > 48 H. Follow up w/ surgery about advancing diet today.
[2019-09-13 06:32] LABS: Anion Gap 11 mmol/L (10-20); BUN (Urea Nitrogen) 8 mg/dL (9.8-20.1); Calc. Creatinine Clearance 193 mL/min (70-130); Calcium 8.8 mg/dL (7.8-10.44); Carbon Dioxide 23 mmol/L (23-31); Chloride 102 mmol/L (98-107); Estimated GFR-MDRD Greater than 90; Glucose 88 mg/dL (80-115); Potassium 3.1 mmol/L (3.5-5.1); Sodium 133 mmol/L (136-145)
[2019-09-13] MEDS ORDERED: BECLOMETHASONE DIPROPIONATE 80 MCG IH PRN (06:38)
[2019-09-13] MEDS ORDERED: Potassium Chloride 30 MEQ in Sodium Chloride 0.9% 250 ML 250 ML IVPB SCH (07:45)
[2019-09-13 08:06] LABS: Band 19 % (5-11); Eosinophils 2 % (0-10); Hemoglobin 12.7 g/dL (12.0-16.0); Lymphocytes 11 % (21-51); MDiff Complete? YES; Mean Corpuscular HGB CONC 31.2 g/dL (32.0-36.0); Mean Corpuscular Hemoglobin 31.5 pg (27.0-31.0); Mean Platelet Volume 10.9 fL (7.4-10.4); Monocytes 3 % (0-10); Neutrophil 65 % (42-75); Platelet Count 42 thou/uL (130-400); Platelet Morphology Comment Appears Decreased; RBC Distribution Width 12.9 % (11.5-14.5); RBC Morphology Normal; Red Blood Cell (RBC) Count 4.03 mill/uL (4.20-5.40)
[2019-09-13] MEDS: Hydrochlorothiazide 25 MG TAB PO SCH (08:21)
[2019-09-13] MEDS: Montelukast Sodium 10 mg Tablet PO SCH (08:23)
[2019-09-13] MEDS ORDERED: Fluticasone Propionate Nasal Spray 16 gm Bottle NASAL PRN (09:00)
[2019-09-13] MEDS ORDERED: Enoxaparin Sodium 40 MG/0.4 ML SYRINGE SC SCH (09:00)
[2019-09-13] MEDS: traMADol HCl 50 MG TAB PO PRN ×2 (10:24→20:15)
[2019-09-13] MEDS: Valsartan 80 MG TAB PO SCH (10:27)
[2019-09-13] MEDS: Doxepin HCl 25 MG CAP PO SCH ×3 (10:27→20:15)
[2019-09-13] MEDS: Famotidine/PF 20 mg/2ml Vial SLOW IVP SCH ×2 (10:28→20:16)
[2019-09-13] MEDS: metroNIDAZOLE 500 MG TAB PO SCH ×2 (10:29→17:46)
--- NOTE | 2019-09-13 11:06 | RAD ---
2 views of the abdomen: 09/13/2019 COMPARISON: None HISTORY: Perforated diverticulitis FINDINGS: The upright imaging demonstrates no significant free intraperitoneal air. Evaluation is a l imited however secondary to body habitus and probable volume loss within the lung bases. Foci of free intraperitoneal air on the basis of bowel perforation was present on the September 10, 2019 CT of the abdomen and pelvis. Multiple dilated gas-filled loops of small bowel noted within the lower abdomen, measuring up to 5.3 cm, with air-fluid levels on upright imaging. IMPRESSION: Multiple gas-filled dilated loops of small bowel within the midabdomen, which suggest sma ll bowel obstruction or prominent ileus.
--- NOTE | 2019-09-13 12:40 | PRG ---
DATE OF SERVICE: 09/13/2019 Ms. Elliott continues to look and feel well. Her abdomen is still slightly distended, but less so than before. We are still following her with surgery and we will defer to them as far as when she can begin to take clear liquids. Job ID: [id number]
--- NOTE | 2019-09-13 15:17 | PRG ---
DATE OF SERVICE: 09/13/2019 SUBJECTIVE: The patient is a 64-year-old woman, who presented to the Emergency Department with acute onset of abdominal pain. Yesterday, she was discontinued from Dilaudid and transitioned to p.o. medications including Tylenol and tramadol p.r.n. Overnight, she did not require any tramadol p.r.n., but this morning complains of pain. She complains of discomfort secondary to her cough, which is causing her abdominal pain. Otherwise, she did pass flatus yesterday, but has not had a bowel movement. She was started on her home allergy medications, which she believes will suppress her cough. OBJECTIVE: VITAL SIGNS: Temperature 99.1, pulse 100, respirations 16, oxygen saturation 98% on 2 L, and blood pressure 154/94. GENERAL: The patient is resting in bed with her at bedside. HEENT: Unremarkable. Lungs: No respiratory distress, equal rise bilaterally. ABDOMEN: Distention present, but no significant tenderness, with palpation she described a 4/10 pain. LABORATORY FINDINGS: White blood cell count 12, hemoglobin 12.7, MCV 101, platelet count 42, bands 19, and hematocrit 40.7. Sodium 133, potassium 3.9, chloride 102, carbon dioxide 23, anion gap 11, BUN 8, creatinine 0.49, and glucose 88. ASSESSMENT: 1. Acute abdominal pain. 2. Perforated sigmoid diverticulitis. 3. Idiopathic thrombocytopenic purpura. 4. Allergic rhinitis. PLAN: Plan is to continue medical management for perforated diverticulitis. We will continue her on antibiotic therapy. Overnight, she did have two episodes of flatus. But today, she does have abdominal distention. We encouraged her to ambulate and to do this, she will need her tramadol p.r.n. medication given to her. Otherwise, we will continue her with Tylenol. She was started yesterday on VTE prophylaxis. Continue her home medication for idiopathic thrombocytopenic purpura. Her platelets are stable today. For her abdominal distention, we have ordered a 2-view abdominal series. If there are no significant abnormalities on this, then we will pursue a clear liquid diet. Overall, her vital signs and labs are trending in the right direction. Pt seen and evaluated with Dr. Sullivan at bedside. Job ID: [id number] [facility]
[2019-09-13] MEDS: ELTROMBOPAG OLAMINE 50 MG PO SCH (17:42)
[2019-09-13] MEDS ORDERED: Montelukast Sodium 10 mg Tablet PO SCH (21:00)
--- NOTE | 2019-09-13 23:47 | PRG ---
DATE OF SERVICE: 09/13/2019 SUBJECTIVE: The patient remains on the medical floor. We are seeing her in consultation for perforated diverticulum. Today, she was started on a clear liquid diet, which she is tolerating. She reports that she is now passing flatus. She continues to ambulate. She denies nausea or vomiting and has not had a bowel movement yet. The patient remains on antibiotics. PHYSICAL EXAMINATION: VITAL SIGNS: Stable. The patient is afebrile. GENERAL: The patient is resting comfortably in bed. She is awake, alert, conversant, and appropriate. She appears in no distress. ABDOMEN: Soft with again less tenderness from my previous exams, though, her abdominal distention does remain. Her bowel sounds are still hypoactive on my exam. ASSESSMENT: 1. Acute abdominal pain. 2. Perforated sigmoid diverticulitis, under medical management at this time. 3. Idiopathic thrombocytopenic purpura. 4. Allergic rhinitis. PLAN: Plan will be to continue medical management to include antibiotics and serial exams. Encourage out of bed and ambulation. Continue clear liquid diet and re-evaluate tomorrow. Job ID: [id number]
[2019-09-14] MEDS: metroNIDAZOLE 500 MG TAB PO SCH ×3 (01:03→17:04)
[2019-09-14] MEDS: Acetaminophen 500 MG TAB PO SCH ×3 (04:33→16:30)
[2019-09-14 06:00] LABS: Hemoglobin 11.8 g/dL (12.0-16.0); Mean Corpuscular HGB CONC 31.9 g/dL (32.0-36.0); Mean Corpuscular Hemoglobin 31.7 pg (27.0-31.0); Mean Corpuscular Volume 99.4 fL (78.0-98.0); Mean Platelet Volume 10.7 fL (7.4-10.4); Platelet Count 21 thou/uL (130-400); RBC Distribution Width 13.1 % (11.5-14.5); Red Blood Cell (RBC) Count 3.72 mill/uL (4.20-5.40); White Blood Cell (WBC) Count 9.3 thou/uL (4.8-10.8)
--- NOTE | 2019-09-14 06:09 | PDOC.FM ---
- Subjective Subjective: Pt pain's is controlled on Tylenol and tramadol. Cough has improved w/ resuming home meds and tessalon pearls. Pt walked yesterday. No flatus or BM. Tolerating diet w/o nausea. - Objective MAR Reviewed: Yes Vital Signs & Weight: Vital Signs (12 hours) Temp Pulse Resp BP Pulse Ox 09/14/19 03:07 98.2 F 88 20 122/76 92 L 09/13/19 20:00 97 09/13/19 19:49 98 F 96 20 132/82 97 09/13/19 19:39 84 16 94 L Weight Weight 108.522 kg Most Recent Monitor Data Heart Rate from ECG 109 NIBP 105/64 NIBP BP-Mean 77 Respiration from ECG 25 SpO2 91 I&O: 09/12/19 09/13/19 09/14/19 06:59 06:59 06:59 Intake Total 3050 1900 1800 Output Total 1150 603 650 Balance 1900 1297 1150 Result Diagrams: 09/14/19 05:34 09/14/19 05:34 Phys Exam - Physical Examination Constitutional: NAD Respiratory: no wheezing, clear to auscultation bilateral Cardiovascular: RRR, no significant murmur Gastrointestinal: soft, non-tender (moderately distended, hypoactive bowel sounds.) Musculoskeletal: no edema Psychiatric: normal affect, A&O x 3 Dx/Plan (1) Diverticulitis large intestine Code(s): K57.32 - DVTRCLI OF LG INT W/O PERFORATION OR ABSCESS W/O BLEEDING Status: Acute (2) HTN (hypertension) Code(s): I10 - ESSENTIAL (PRIMARY) HYPERTENSION Status: Acute (3) SIDNEY on CPAP Code(s): G47.33 - OBSTRUCTIVE SLEEP APNEA (ADULT) (PEDIATRIC); Z99.89 - DEPENDENCE ON OTHER ENABLING MACHINES AND DEVICES Status: Acute (4) Chronic ITP (idiopathic thrombocytopenia) Code(s): D69.3 - IMMUNE THROMBOCYTOPENIC PURPURA Status: Acute - Plan Plan: 64-yo F w/ multiple comorbidities admitted for: Sepsis 2/2 acute diverticulitis Perforation of Sigmoid Colon - Gen surg consulted, Dr. Sullivan would like to pursue non-operative mgmt. Appreciate recs. - levaquin and flagyl IV - Fluid resuscitate w/ LR - pain control, Tylenol and tramadol - BCx gram neg shahab 1 out of 2 positive. Await sensitivities. HTN - continue home meds. SIDNEY - CPAP at night. ITP - restarted home promacta Severe seasonal allergies - continue doxepin and montelukast and tessalon. Obesity Code: FULL Diet: CLD VTE ppx: SCDs, frequent ambulation. Holding lovenox in setting of ITP. Fluids: LR at 150 mL/hr GI ppx: pepcid Abx: metronidazole, levaquin IV Disposition/LOS: admit to surgical floor as inpatient. LOS > 48 H. F/u w/ surgery.
[2019-09-14 06:13] LABS: Anion Gap 11 mmol/L (10-20); BUN (Urea Nitrogen) 8 mg/dL (9.8-20.1); Calc. Creatinine Clearance 198 mL/min (70-130); Calcium 8.5 mg/dL (7.8-10.44); Carbon Dioxide 26 mmol/L (23-31); Chloride 100 mmol/L (98-107); Estimated GFR-MDRD Greater than 90; Glucose 85 mg/dL (80-115); Magnesium 1.7 mg/dL (1.6-2.6); Phosphorus 2.6 mg/dL (2.3-4.7); Sodium 134 mmol/L (136-145)
[2019-09-14 06:20] LABS: Band 17 % (5-11); Eosinophils 3 % (0-10); Lymphocytes 9 % (21-51); MDiff Complete? YES; Monocytes 2 % (0-10); Neutrophil 69 % (42-75); Platelet Morphology Comment Appears Decreased
[2019-09-14] MEDS ORDERED: Potassium Phosphate 30 MMOL in Sodium Chloride 0.9% 500 ML IVPB SCH (07:45)
[2019-09-14] MEDS ORDERED: Potassium Phosphate 30 MMOL in Sodium Chloride 0.9% 250 ML 250 ML IVPB SCH (08:15)
[2019-09-14] MEDS ORDERED: Magnesium 2 GM/50 ML 2 GM in Premix Bag 1 BAG IVPB SCH (08:15)
[2019-09-14] MEDS: Hydrochlorothiazide 25 MG TAB PO SCH (09:03)
[2019-09-14] MEDS: Famotidine/PF 20 mg/2ml Vial SLOW IVP SCH ×2 (09:03→20:15)
[2019-09-14] MEDS: Montelukast Sodium 10 mg Tablet PO SCH (09:03)
[2019-09-14] MEDS: Valsartan 80 MG TAB PO SCH (09:03)
[2019-09-14] MEDS: Lactated Ringer's 1,000 ML IV SCH ×2 (09:04→15:58)
[2019-09-14] MEDS: Doxepin HCl 25 MG CAP PO SCH ×3 (09:04→20:15)
[2019-09-14] MEDS: ELTROMBOPAG OLAMINE 50 MG PO SCH (09:05)
[2019-09-14] MEDS ORDERED: Potassium Chloride 20 MEQ/100 ML PREMIX BAG IVPB SCH (09:30)
[2019-09-14] MEDS ORDERED: Simethicone Chewable 80 MG TAB PO PRN (11:12)
--- NOTE | 2019-09-14 11:57 | PRG ---
DATE OF SERVICE: 09/14/2019 Ms. Elliott is resting quietly in bed, in no distress. Her abdomen is still distended. We are allowing Surgery to be in charge of her diet. Her one blood culture has resulted and is growing gram-negative rods. We have added ceftriaxone to her regimen of Levaquin and Flagyl. We will continue working with the Surgery Service. Job ID: [id number]
--- NOTE | 2019-09-14 12:02 | PRG ---
DATE OF SERVICE: 09/14/2019 SUBJECTIVE: Ms. Elliott is 64-year-old woman, who was admitted on 09/10/2019 with acute sigmoid colon diverticulitis and perforation. She was placed on intravenous antibiotic therapy. Her physiology has been improving. She was placed on clear liquid diet yesterday and seems to be tolerating that. She is passing flatus, but has not had any bowel movements. She reports adequate pain control. Rating her pain this morning, less than 5/10. She is ambulating with minimum difficulty. The blood culture, which was obtained on 09/10/2019 has now returned gram-negative rods. OBJECTIVE: VITAL SIGNS: Current vital signs includes blood pressure 151/93, pulse is 92, respiratory rate is 20, maximum temperature in last 24 hours is 99.3 degrees Fahrenheit, and oxygen saturation is 96% on room air. HEENT: Reveals pupils are equal, round, and reactive to light and accommodation. NECK: No jugular venous distention noted. HEART: Reveals regular rate and rhythm. ABDOMEN: Soft and moderately distended with gas. She has minimum tenderness to palpation clearly with no peritoneal signs on examination. NEUROLOGIC: Reveals no focal deficits present. LABORATORY FINDINGS: Today includes a CBC with 9300 white blood cells, hemoglobin and hematocrit 11.8 and 37.0 respectively. Platelet count is 21,000. Differential counts as follows; 69 segmented neutrophils, 17 bands, 9 lymphocytes, and 3 eosinophils. Metabolic profile; sodium 134, potassium 3.0, chloride is 100, bicarb is 26, BUN 8, creatinine 0.48, glucose 85, magnesium 1.7, and phosphorus 2.6. IMPRESSION: 1. Post admission day #4 with acute sigmoid colon diverticulitis with perforation. 2. Gram-negative shahab bacteremia secondary to perforated sigmoid colon diverticulum. 3. Acute hypokalemia. 4. Acute hypophosphatemia. 5. Acute hypomagnesemia. PLAN: 1. Correct abnormal electrolytes. 2. Continue with broad-spectrum antibiotic therapy. 3. Increase activity. I have encouraged the patient to ambulate vigorously and liberally to facilitate resolution of adynamic ileus. The above findings and plan have been discussed with the patient and her at bedside. Criteria for discharge will be resolution of the adynamic ileus, marked by return of bowel function, tolerance to oral intake, adequate pain control on oral analgesics, and no fever for 24 hours. The patient and her have indicated understanding of information given. I have answered their questions. Job ID: [id number]
[2019-09-14] MEDS ORDERED: Senokot 8.6 MG TAB PO PRN (18:38)
[2019-09-14] MEDS: Benzonatate 100 MG CAP PO PRN (18:48)
[2019-09-14] MEDS ORDERED: Hydrocortisone Sod Succ/PF 100 mg/2 ml Vial IVP SCH (21:45)
[2019-09-14] MEDS ORDERED: Dexamethasone 4 MG TAB PO SCH (22:30)
--- NOTE | 2019-09-14 22:45 | PRG ---
DATE OF SERVICE: SUBJECTIVE: The patient remains on the medical floor. She is a patient we are seeing in consultation for perforated diverticulum. She continues to be on antibiotics. Her blood cultures today return gram-negative shahab in one of two cultures. She otherwise is doing well. She has been afebrile. She is tolerating a diet and reports that she has been ambulating. At the time of my visit, the patient states that she is not passing gas today. She denies nausea or vomiting. OBJECTIVE: VITAL SIGNS: Stable. The patient is afebrile. GENERAL: She is resting comfortably in bed. She is awake, alert, conversant, appropriate. She appears in no distress. ABDOMEN: Soft. Remains moderately distended. No gross peritoneal signs, and hypoactive bowel sounds. ASSESSMENT: 1. Acute abdominal pain. 2. Perforated sigmoid diverticulitis, under medical management. 3. Idiopathic thrombocytopenic purpura. PLAN: Plan will be to continue broad spectrum antibiotics. Encourage out of bed and ambulation. We have also asked the primary team, Family Medicine to address her ITP, possibly resuming her steroids should she require surgical intervention. Job ID: [id number]
[2019-09-15] MEDS: Acetaminophen 500 MG TAB PO SCH ×5 (00:05→23:49)
[2019-09-15] MEDS: metroNIDAZOLE 500 MG TAB PO SCH ×3 (00:52→17:17)
[2019-09-15] MEDS: Lactated Ringer's 1,000 ML IV SCH ×3 (03:48→23:49)
--- NOTE | 2019-09-15 05:28 | PDOC.FM ---
- Subjective Subjective: Patient reports had a large BM this morning, which was somewhat loose. This was confirmed by nursing staff. Patient complains her hands are swollen this morning ; says this happens sometimes and thinks it's arthritis. Otherwise, she tolerated clear liquids yesterday. - Objective MAR Reviewed: Yes Vital Signs & Weight: Vital Signs (12 hours) Temp Pulse Resp BP Pulse Ox 09/14/19 20:02 97.9 F 108 H 20 151/83 H 96 09/14/19 18:20 99.5 F 96 20 134/75 94 L Weight Weight 108.522 kg Most Recent Monitor Data Heart Rate from ECG 109 NIBP 105/64 NIBP BP-Mean 77 Respiration from ECG 25 SpO2 91 I&O: 09/13/19 09/14/19 09/15/19 06:59 06:59 06:59 Intake Total 1900 1800 1040 Output Total 603 650 Balance 1297 1150 1040 Result Diagrams: 09/15/19 06:02 09/15/19 06:02 Phys Exam - Physical Examination Constitutional: NAD Respiratory: clear to auscultation bilateral Cardiovascular: RRR Gastrointestinal: soft, non-tender (moderate distension, normoactive BS) Musculoskeletal: no edema Psychiatric: normal affect, A&O x 3 Dx/Plan (1) Diverticulitis large intestine Code(s): K57.32 - DVTRCLI OF LG INT W/O PERFORATION OR ABSCESS W/O BLEEDING Status: Acute (2) HTN (hypertension) Code(s): I10 - ESSENTIAL (PRIMARY) HYPERTENSION Status: Acute (3) SIDNEY on CPAP Code(s): G47.33 - OBSTRUCTIVE SLEEP APNEA (ADULT) (PEDIATRIC); Z99.89 - DEPENDENCE ON OTHER ENABLING MACHINES AND DEVICES Status: Acute (4) Chronic ITP (idiopathic thrombocytopenia) Code(s): D69.3 - IMMUNE THROMBOCYTOPENIC PURPURA Status: Acute - Plan Plan: 64-yo F w/ multiple comorbidities admitted for: Sepsis 2/2 acute diverticulitis Perforation of Sigmoid Colon - Gen surg consulted, Dr. Sullivan. Appreciate recs. Continue medical mgmt - levaquin and flagyl IV. Advance to PO. - Fluid resuscitate w/ LR - pain control, Tylenol and tramadol - BCx gram neg shahab 1 out of 2 positive. Await sensitivities. Negative for typical pathogens. Anaerobic cultures added yesterday. HTN - continue home meds. SIDNEY - CPAP at night. ITP - restarted home promacta - 4 day steroid course in case pt goes to surgery in near future since platelet count today is 25. Severe seasonal allergies - continue doxepin and montelukast and tessalon. Obesity Code: FULL Diet: CLD. Advance as tolerated. VTE ppx: SCDs, frequent ambulation. Holding lovenox in setting of ITP. Fluids: LR. Will decrease as pt tolerates PO. GI ppx: pepcid Abx: metronidazole, levaquin IV Disposition/LOS: admit to surgical floor as inpatient. LOS > 48 H. F/u w/ surgery. Addendum - Attending - Attending Attestation Date/Time: 09/15/19 4538 I personally evaluated the patient and discussed the management with Dr. Ramon. I agree with the History, Examination, Assessment and Plan documented above with any addition or exceptions noted below. Patient here with diverticulitis with abscess and perforation. She reports improved pain. She had a BM overnight and feels better. Tolerated CLD but surgery made NPO. Await recs from them but hopeful we can resume diet advance at this time. She is back on Decadron for ITP, monitor platelet count closely.
[2019-09-15 06:29] LABS: #Lymphocytes 0.6 thou/uL (1.20-3.40); #Monocytes 0.2 thou/uL (0.11-0.59); #Neutrophils 8.5 thou/uL (1.40-6.50); %Eosinophils 0.4 % (0.0-10.0); %Lymphocytes 6.6 % (21.0-51.0); %Monocytes 2.4 % (0.0-10.0); %Neutrophils 90.6 % (42.0-75.0); Hemoglobin 12.6 g/dL (12.0-16.0); Mean Corpuscular HGB CONC 33.2 g/dL (32.0-36.0); Mean Corpuscular Hemoglobin 32.6 pg (27.0-31.0); Mean Corpuscular Volume 98.3 fL (78.0-98.0); Mean Platelet Volume 10.9 fL (7.4-10.4); Platelet Count 25 thou/uL (130-400); Red Blood Cell (RBC) Count 3.86 mill/uL (4.20-5.40); White Blood Cell (WBC) Count 9.4 thou/uL (4.8-10.8)
[2019-09-15 06:55] LABS: Phosphorus 3.9 mg/dL (2.3-4.7)
[2019-09-15 07:00] LABS: Anion Gap 13 mmol/L (10-20); BUN (Urea Nitrogen) 5 mg/dL (9.8-20.1); Calc. Creatinine Clearance 190 mL/min (70-130); Calcium 8.7 mg/dL (7.8-10.44); Carbon Dioxide 26 mmol/L (23-31); Chloride 98 mmol/L (98-107); Estimated GFR-MDRD Greater than 90; Glucose 115 mg/dL (80-115); Magnesium 1.8 mg/dL (1.6-2.6); Potassium 3.2 mmol/L (3.5-5.1); Sodium 134 mmol/L (136-145)
[2019-09-15] MEDS ORDERED: Potassium Phosphate 30 MMOL in Sodium Chloride 0.9% 500 ML IVPB SCH (07:30)
[2019-09-15] MEDS: Valsartan 80 MG TAB PO SCH (08:32)
[2019-09-15] MEDS: Polyethylene Glycol 3350 17 GM Packet PO SCH (08:33)
[2019-09-15] MEDS: Doxepin HCl 25 MG CAP PO SCH ×3 (08:33→20:49)
[2019-09-15] MEDS: Hydrochlorothiazide 25 MG TAB PO SCH (08:34)
[2019-09-15] MEDS: Saccharomyces boulardii 250 MG CAP PO SCH (08:35)
[2019-09-15] MEDS: Montelukast Sodium 10 mg Tablet PO SCH (08:35)
[2019-09-15] MEDS: ELTROMBOPAG OLAMINE 50 MG PO SCH (08:40)
[2019-09-15] MEDS ORDERED: Hydrocortisone Sod Succ/PF 100 mg/2 ml Vial IVP SCH (09:00)
[2019-09-15] MEDS: Famotidine/PF 20 mg/2ml Vial SLOW IVP SCH ×2 (12:42→20:51)
[2019-09-15] MEDS: Benzonatate 100 MG CAP PO PRN ×2 (13:32→20:56)
--- NOTE | 2019-09-15 15:48 | PRG ---
DATE OF SERVICE: 09/15/2019 SUBJECTIVE: Ms. Elliott is a 64-year-old woman, admitted with acute diverticulitis with perforation, which is being managed nonoperatively. She is on broad-spectrum antibiotic therapy. She is tolerating clear liquid diet. She reported large bowel movement this morning, which was loose. She is passing flatus, though not much. She is ambulating and reports adequate pain control. OBJECTIVE: VITAL SIGNS: This morning include blood pressure 144/79, pulse is 93, respiratory rate is 20, maximum temperature in the last 24 hours is 99.3 degrees Fahrenheit, currently she is afebrile with a temperature of 98.1 degrees Fahrenheit, and oxygen saturation 96% on room air. ABDOMEN: Soft, moderately distended with gas. She has mild tenderness to palpation, clearly with no rebound tenderness present. LABORATORY FINDINGS: Today include a CBC with 9400 white blood cells, hemoglobin and hematocrit 12.6 and 37.9 respectively, and platelet count 25,000, marginally up from 21,000 yesterday. Metabolic profile: Sodium 134, potassium 3.2, chloride is 98, bicarb is 26, BUN 5, creatinine 0.50, and glucose 115. Magnesium 1.8. Phosphorus 3.9. IMPRESSIONS: 1. Acute diverticulitis with perforation, resolving. 2. Acute hypokalemia. 3. Acute hypomagnesemia. PLAN: 1. Correct abnormal electrolytes. 2. Continue with antibiotic therapy and advance diet to full liquids. 3. If tolerating full liquids, the patient may be advanced to regular diet in the morning, and if she has remained afebrile within the next 24 hours, she may be discharged at the discretion of the primary service to follow up with me in the General Surgery Clinic in 2 weeks with a repeat CT scan of the abdomen and pelvis with p.o. and IV contrast at that time. 4. Above findings and plan discussed with the patient who indicates understanding information given. I have answered her questions. Job ID: [id number]
[2019-09-15] MEDS ORDERED: Dexamethasone 4 MG TAB PO SCH (22:00)
[2019-09-16] MEDS: metroNIDAZOLE 500 MG TAB PO SCH ×2 (01:14→10:42)
--- NOTE | 2019-09-16 04:46 | PRG ---
DATE OF SERVICE: 09/16/2019 SUBJECTIVE: The patient remains on the medical floor. She is being treated medically for a perforated diverticulum. Earlier today, she had a bowel movement. She denied nausea or vomiting. She has remained afebrile. At the time of my visit, she was asleep. I did not awaken her. PHYSICAL EXAMINATION: VITAL SIGNS: Stable. The patient is afebrile. GENERAL: She was resting comfortably in bed. She appeared in no distress. ASSESSMENT: 1. Acute abdominal pain. 2. Perforated sigmoid diverticulitis, under medical management. 3. Idiopathic thrombocytopenic purpura. PLAN: Will be to continue antibiotics. Advance diet as tolerated. Encourage continued out of bed ambulation, and the patient will likely be able to be discharged within the next 24 to 48 hours. Job ID: [id number]
[2019-09-16] MEDS: Acetaminophen 500 MG TAB PO SCH ×2 (05:07→12:32)
--- NOTE | 2019-09-16 05:42 | PDOC.FM ---
- Subjective Subjective: Pt reports her stomach has been aching, not the same pain as when she was admitted. She says it "feels like lead" in her stomach after she takes oral abx. Had 1 loose BM yesterday. No flatus, but has urge to pass flatus. She holds it as she is afraid it is a BM. Otherwise, she has tolerated her diet well and continued to ambulate w/o difficulty. - Objective MAR Reviewed: Yes Vital Signs & Weight: Vital Signs (12 hours) Temp Pulse Resp BP Pulse Ox 09/15/19 19:52 98.6 F 105 H 18 144/95 H 97 Weight Weight 108.522 kg Most Recent Monitor Data Heart Rate from ECG 109 NIBP 105/64 NIBP BP-Mean 77 Respiration from ECG 25 SpO2 91 I&O: 09/14/19 09/15/19 09/16/19 06:59 06:59 07:59 Intake Total 1800 1040 1660 Output Total 650 Balance 1150 1040 1660 Result Diagrams: 09/16/19 05:29 09/16/19 05:29 Phys Exam - Physical Examination Constitutional: NAD Respiratory: clear to auscultation bilateral Cardiovascular: RRR Gastrointestinal: soft, no distention, positive bowel sounds (mild TTP over epigastrium) Psychiatric: normal affect, A&O x 3 Dx/Plan (1) Diverticulitis large intestine Code(s): K57.32 - DVTRCLI OF LG INT W/O PERFORATION OR ABSCESS W/O BLEEDING Status: Acute (2) HTN (hypertension) Code(s): I10 - ESSENTIAL (PRIMARY) HYPERTENSION Status: Acute (3) SIDNEY on CPAP Code(s): G47.33 - OBSTRUCTIVE SLEEP APNEA (ADULT) (PEDIATRIC); Z99.89 - DEPENDENCE ON OTHER ENABLING MACHINES AND DEVICES Status: Acute (4) Chronic ITP (idiopathic thrombocytopenia) Code(s): D69.3 - IMMUNE THROMBOCYTOPENIC PURPURA Status: Acute - Plan Plan: Sepsis 2/2 acute diverticulitis Perforation of Sigmoid Colon - Gen surg consulted, Dr. Sullivan. Appreciate recs. Per note, if pt afebrile and tolerating diet, may be d/c and f/u outpatient in [address] abd/ pelvis w/ PO and IV contrast. - continue PO abx, give w/ food to prevent GI upset. - oral hydration. - BCx gram neg shahab 1 out of 2 positive. Anaerobic growth of bacteroides species w/ beta-lactam positivity. Hypokalemia - replete orally and IV HTN - continue home meds. SIDNEY - CPAP at night. ITP - restarted home promacta - 4 day steroid course in event pt goes to surgery. Platelet count much improved today. Severe seasonal allergies - continue doxepin and montelukast and tessalon. Obesity Code: FULL Diet: FLD. Advance as tolerated. VTE ppx: SCDs, frequent ambulation. Holding lovenox in setting of ITP. Fluids: oral GI ppx: pepcid Abx: metronidazole, levaquin PO Disposition/LOS: admit to surgical floor as inpatient. Anticipate d/c sometime later today pending toleration of diet. Addendum - Attending - Attending Attestation Date/Time: 09/16/19 [id number] I personally evaluated the patient and discussed the management with Dr. Ramon. I agree with the History, Examination, Assessment and Plan documented above with any addition or exceptions noted below.
[2019-09-16 06:06] LABS: #Lymphocytes 1.2 thou/uL (1.20-3.40); #Monocytes 0.5 thou/uL (0.11-0.59); #Neutrophils 11.2 thou/uL (1.40-6.50); %Basophils 0.1 % (0.0-1.0); %Eosinophils 0.3 % (0.0-10.0); %Lymphocytes 9.3 % (21.0-51.0); %Monocytes 3.9 % (0.0-10.0); %Neutrophils 86.4 % (42.0-75.0); Hemoglobin 11.2 g/dL (12.0-16.0); Mean Corpuscular Hemoglobin 32.7 pg (27.0-31.0); Mean Corpuscular Volume 99.1 fL (78.0-98.0); Mean Platelet Volume 10.6 fL (7.4-10.4); Platelet Count 78 thou/uL (130-400); RBC Distribution Width 13.1 % (11.5-14.5); Red Blood Cell (RBC) Count 3.42 mill/uL (4.20-5.40); White Blood Cell (WBC) Count 12.9 thou/uL (4.8-10.8)
[2019-09-16 06:24] LABS: Anion Gap 10 mmol/L (10-20); BUN (Urea Nitrogen) 8 mg/dL (9.8-20.1); Calc. Creatinine Clearance 179 mL/min (70-130); Calcium 8.8 mg/dL (7.8-10.44); Carbon Dioxide 34 mmol/L (23-31); Chloride 97 mmol/L (98-107); Estimated GFR-MDRD Greater than 90; Glucose 164 mg/dL (80-115); Potassium 3.1 mmol/L (3.5-5.1); Sodium 138 mmol/L (136-145)
[2019-09-16] MEDS ORDERED: Potassium Chloride 20 MEQ TAB PO SCH (07:00)
[2019-09-16] MEDS ORDERED: Potassium Chloride 20 MEQ in Premix Bag 1 BAG IVPB SCH (07:15)
[2019-09-16] MEDS: Hydrochlorothiazide 25 MG TAB PO SCH (08:23)
[2019-09-16] MEDS: Saccharomyces boulardii 250 MG CAP PO SCH (08:23)
[2019-09-16] MEDS: Montelukast Sodium 10 mg Tablet PO SCH (08:23)
[2019-09-16] MEDS: ELTROMBOPAG OLAMINE 50 MG PO SCH (08:24)
[2019-09-16] MEDS: Polyethylene Glycol 3350 17 GM Packet PO SCH (08:24)
[2019-09-16] MEDS: Doxepin HCl 25 MG CAP PO SCH (08:25)
[2019-09-16] MEDS: Valsartan 80 MG TAB PO SCH (08:28)
[2019-09-16] MEDS: Famotidine/PF 20 mg/2ml Vial SLOW IVP SCH (10:42)
[2019-09-16 13:32] VITALS: BP 162/89; TEMP 98.3
--- NOTE | 2019-09-16 13:33 | PRG ---
DATE OF SERVICE: 09/16/2019 SUBJECTIVE: Ms. Elliott is a 64-year-old woman who was admitted on 09/10/2019 with acute sigmoid colon diverticulitis with perforation. Microbiology was consistent with Bacteroides. The patient is being on oral levofloxacin and tolerating full liquid diet. She reports bowel movements and passing flatus this morning. She has been afebrile over the last 2 days. OBJECTIVE: VITAL SIGNS: This morning include blood pressure 132/80, pulse 93, respiratory rate 18, temperature 98.8 degrees Fahrenheit, and oxygen saturation 96% on room air. ABDOMEN: Soft, moderately distended, but nontender to palpation. Liver and spleen nonpalpable below the costal margins. Bowel sounds are positive in all 4 quadrants. NEUROLOGIC: Reveals no focal deficits present. LABORATORY FINDINGS: Today include a CBC with 12,900 white blood cells, hemoglobin and hematocrit of 11.2 and 33.8 respectively. Platelet count is 78,000 up from 25,000 yesterday. Metabolic profile; sodium 138, potassium 3.1, chloride is 97, bicarb is 34, BUN 8, creatinine 0.53, and glucose 164. IMPRESSION: 1. Acute sigmoid colon diverticulitis with perforation, resolving. 2. Acute hypokalemia. PLAN: 1. Correct abnormal electrolytes. 2. There remains no acute surgical indication for this patient at this time. 3. The patient may be discharged home at the discretion of the primary service. 4. She requires 2 weeks course of levofloxacin and metronidazole. 5. She is to continue to take Florastor during the duration of antibiotic therapy. 6. She requires followup with me in the [facility] on October 08. 7. She needs repeat CT scan of the abdomen and pelvis with p.o. and IV contrast on October 07. 8. Above findings and plan discussed with the patient and at bedside. They indicate understanding information given. I have answered their questions. Job ID: [id number]
== END 2019-09-16 13:43 | disposition home or self-care (01) | DRG 872 ==
LOC: ERS 12:09 → IMCU/EMU 16:19 → UNDOADMIN 17:11 → SURG A 17:11 → T4-A 09-11 22:32
PROVIDERS: ADMIT Family Medicine; ATTEND Family Medicine
DX: A41.50 Gram-negative sepsis, unspecified (principal); K57.20 Diverticulitis of large intestine with perforation and abscess without bleeding; D69.3 Immune thrombocytopenic purpura; Z68.41 Body mass index [BMI] 40.0-44.9, adult; E87.2 Acidosis; E66.01 Morbid (severe) obesity due to excess calories; I10 Essential (primary) hypertension; G47.33 Obstructive sleep apnea (adult) (pediatric); J30.2 Other seasonal allergic rhinitis; E87.6 Hypokalemia; E83.42 Hypomagnesemia; E83.39 Other disorders of phosphorus metabolism; Z87.891 Personal history of nicotine dependence; Z79.899 Other long term (current) drug therapy; Z99.89 Dependence on other enabling machines and devices
CPT/HCPCS: 36415; 51701; 74019; 74177; 80048; 80053; 81003; 83605; 83690; 83735; 84100; 84484; 85025; 87040; 87076; 87086; 87149; 93005; 94640; 96361; 96365; 96375; 96376; J0692; J1170; J1650; J1956; J2270; J2405; J2543; J3475; J3480; J7050; J7620; J8540; Q0163; Q9967; S0028

== ENCOUNTER 2019-10-08 09:33 | Outpatient (CLI) | payer MEDICARE ==
[~2019-10-08 09:33] MED LIST: Iopamidol 370 76% 100 ML VIAL ONE
--- NOTE | 2019-10-08 11:26 | CT ---
CT ABDOMEN AND PELVIS WITH ORAL AND IV COTNRAST: HISTORY: Diverticulitis. COMPARISON: 09/10/2019. FINDINGS: Chronic changes in the lung bases are again seen. Fatty infiltration of the liver is again seen. No calcified gallstones are noted. The spleen, pancreas, adrenal glands, and kidneys are normal. There has been interval resolution of the pneumoperitoneum noted on the previous study. Sigmoid dive rticulitis is again seen with a 3.8 cm abscess anterior to the mid sigmoid colon. There are multiple air fluid collections consistent with abscesses. These measure 3 cm in the right lower quadrant, 4. 2 cm and 3 cm respectively in the left lower quadrant, and 2 cm in the left mid abdomen laterally. I t cannot be said with certainty if these are connected to one another. There is colonic diverticulos is. The air fluid collection in the left mid abuts the thickened colonic wall. A 15 mm abscess is a lso seen in the left lower mid abdomen. The small bowel loops are not abnormally dilated. There are vascular calcifications without evidence of aneurysmal dilatation of the abdominal aorta. Uterus is present. There are degenerative changes in the spine. Anterior and superior to the urinary bladder there is focal inflammatory change with probable fluid suspicious for a phlegmon/developing abscess. IMPRESSION: Sigmoid diverticulitis with multiple abscesses. Discussed over the telephone with Dr. Mata Sullivan at 10:40 a.m. QUITA ROA POS: RHONDA
== END 2019-10-08 09:34 | disposition home or self-care (01) ==
LOC: BICCT 09:33
PROVIDERS: ATTEND Surgery
DX: K57.20 Diverticulitis of large intestine with perforation and abscess without bleeding (principal)
CPT/HCPCS: 74177; Q9967

== ENCOUNTER 2019-10-11 08:58 | Day surgery (SDC) | payer MEDICARE ==
[~2019-10-11 08:58] MED LIST changes: -Iopamidol 370 76% 100 ML VIAL ONE; +Prevnar 13-Val Conj/PF 0.5 ML SYRINGE IM ONE
[2019-10-11 10:00] LABS: Prothrombin Time 13.2 SEC (12.0-14.7)
[2019-10-11 10:03] LABS: PTT 27.5 SEC (22.9-36.1)
[2019-10-11] MEDS ORDERED: Fentanyl 100 MCG/2 ML VIAL ONE (10:30)
[2019-10-11] MEDS ORDERED: Sodium Bicarbonate 2.5 MEQ/5 ML VIAL ONE (10:31)
[2019-10-11 10:35] VITALS: BP 115/50; TEMP 98.3
--- NOTE | 2019-10-11 12:20 | CT ---
EXAM: CT Limited Exam PROVIDED CLINICAL HISTORY: History of perforated sigmoid diverticulitis and abscess collections. Patient presents today for abby jacome of a larger collection in the left anterolateral aspect of the pelvis. COMPARISON: 10/08/2019 FINDINGS: The fluid and gas collection in the left anterolateral aspect upper pelvis is again seen. However, th e collection does measure smaller in size with greatest AP dimension of approximately 3.1 cm and previous measurement of 4.2 cm. This also appear to be contiguous with a collection just inferiorly a nd more medially, and this collection on the prior exam measured 3 cm in greatest AP dimension. On today's examination this collection measures 2.5 cm. Collection coursing superiorly from the larger c ollection anterolateral left hemipelvis is also again seen and is stable to slightly smaller in size compared to the prior study. Collection in the central pelvis is again seen previously measured 3.8 cm, and measurement on today's examination is approximately 3.3 cm. Collection in the right anterolateral pelvis is subjectively smaller in size with reduced AP dimension. Colonic diverticulosis is again present. Area of mild increased density seen anterior and superior to the urinary bladder on the prior exam is again seen and may be related to phlegmon in this region as well as adjacent loops of unopacified bowel. Small fat-containing umbilical hernia is present. Lower most pelvis was not imaged on this exam. IMPRESSION: Scattered small abscess collections within the pelvis. A larger collection in the left anterolateral pelvis has decreased in size compared to the prior exam, and as a result, percutaneous drainage was not performed at this time. Findings were discussed with Dr. Sullivan at this time. Patient will contin ue antibiotics with follow-up imaging recommended.
== END 2019-10-11 12:00 | disposition home or self-care (01) ==
LOC: CT 08:58
PROVIDERS: ATTEND Surgery
DX: K57.20 Diverticulitis of large intestine with perforation and abscess without bleeding (principal); K42.9 Umbilical hernia without obstruction or gangrene; J30.1 Allergic rhinitis due to pollen; I10 Essential (primary) hypertension; Z87.891 Personal history of nicotine dependence; Z79.2 Long term (current) use of antibiotics; Z79.899 Other long term (current) drug therapy; Z91.011 Allergy to milk products; Z91.018 Allergy to other foods; Z91.040 Latex allergy status
CPT/HCPCS: 36415; 76380; 85025; 85610; 85730; J3010

== ENCOUNTER 2019-10-25 13:30 | Outpatient (CLI) | payer MEDICARE ==
[2019-10-25 14:13] LABS: Estimated GFR-MDRD - POC Greater than 90
--- NOTE | 2019-10-25 15:47 | CT ---
CT ABDOMEN AND PELVIS WITH ORAL AND IV CONTRAST: 10/25/19 HISTORY: Diverticulitis with abdominopelvic abscesses. Sigmoid diverticulitis with multiple abscesses. COMPARISON: 10/08/19. FINDINGS: There has been interval improvement with reduction in size of the multiple abscesses seen on the exam of 10/08/19. A 3.8 cm abscess anterior to the mid sigmoid colon currently measures 3 cm. The 4.2 cm a bscess in the left lower quadrant currently measures 15 mm. The 2 cm abscess in the left mid abdomen laterally currently measures 7 mm and the 3 cm abscess in the right lower quadrant shows near complet e resolution. Colonic diverticulosis is again seen with continued thickening of a segment of the sigmoid colon. The small bowel loops are not abnormally dilated. No free air or free fluid is seen in the abdomen or pelvis. Chronic changes in the lung bases, fatty infiltration of the liver are redemonstrated. No calcified g allstones are seen. The spleen, pancreas, adrenal glands and kidneys are normal. IMPRESSION: Significant interval improvement without complete resolution of multiple abscesses noted on 10/08/2019 . POS: GENESIS
== END 2019-10-25 13:31 | disposition home or self-care (01) ==
LOC: BICCT 13:30
PROVIDERS: ATTEND Surgery
DX: K57.20 Diverticulitis of large intestine with perforation and abscess without bleeding (principal)
CPT/HCPCS: 74177; 82565

== ENCOUNTER 2020-05-28 13:23 | Outpatient (CLI) | payer MEDICARE ==
--- NOTE | 2020-05-28 14:17 | BD ---
EXAM: DEXA bone density examination HISTORY: Osteoporosis screening COMPARISON: None FINDINGS: L1--bone mineral density 1.014 g/sq cm; T score 0.2. Z score 1.9 L2--bone mineral density 1.092 g/sq cm; T score 0.6; Z score 2.5 L3--bone mineral density 1.107 g/sq cm; T score 0 point; Z score 2.2 L4--bone mineral density 0.949 g/sq cm; T score -1.0, Z score 1.0 Total L1-L4--bone mineral density 1.037 g/sq cm; T score -0.1, Z score 1.8 Left femoral neck--bone mineral density0.712; T score -1.2, Z score 0.4 Total proximal left femur--bone mineral density 0.992; T score 0.4, Z score 1.8 This patient has a 10 year WHO fracture risk of a major osteoporotic fracture of 8.3% and of a hip fr acture of 0.8%. IMPRESSION: Based on the WHO criteria, the patient's bone mineral density is consideredOsteopenic. T he patient is at moderate risk for fracture.
== END 2020-05-28 13:24 | disposition home or self-care (01) ==
LOC: BICMAMMO 13:23
PROVIDERS: ATTEND Registered Nurse
DX: Z13.820 Encounter for screening for osteoporosis (principal); M85.89 Other specified disorders of bone density and structure, multiple sites
CPT/HCPCS: 77080

== ENCOUNTER 2020-05-30 13:16 | Outpatient (CLI) | payer MEDICARE ==
--- NOTE | 2020-05-30 13:59 | MMO ---
Bilateral MAMMO Bilat Screen [facility]. CLINICAL HISTORY: Patient is 65 years old and is seen for screening. The patient has no family history of breast cancer. The patient has no personal history of cancer. VIEWS: The views performed were: bilateral craniocaudal with tomosynthesis and bilateral mediolateral oblique with tomosynthesis. This study has been interpreted with the assistance of computer-aided detection. MAMMOGRAM FINDINGS: There are scattered fibroglandular densities. Asymmetric density retroareolar right breast. In the left breast, there are no suspicious masses, calcifications or areas of architectural distortion. IMPRESSION: FINDING IN THE RIGHT BREAST REQUIRES ADDITIONAL EVALUATION. SPOT COMPRESSION IS RECOMMENDED. THE RESULTS OF THIS EXAM WERE SENT TO THE PATIENT. ACR BI-RADS Category 0 - Incomplete: Need additional imaging evaluation. [facility] will notify the patient of the need for additional imaging services. MAMMOGRAPHY NOTE: 1. A negative mammogram report should not delay a biopsy if a dominant of clinically suspicious mass is present. 2. Approximately 10% to 15% of breast cancers are not detected by mammography. 3. Adenosis and dense breasts may obscure an underlying neoplasm. Reported by: SALLIE CORDON MD Electonically Signed: [id number]
== END 2020-05-30 13:17 | disposition home or self-care (01) ==
LOC: BICMAMMO 13:16
DX: Z12.31 Encounter for screening mammogram for malignant neoplasm of breast (principal)
CPT/HCPCS: 77063; 77067

== ENCOUNTER 2020-07-02 13:30 | Outpatient (CLI) | payer MEDICARE ==
--- NOTE | 2020-07-02 14:15 | MMO ---
Right Breast MAMMO Unilat Diag [facility]DI RT+ALIVIA. CLINICAL HISTORY: Patient is 65 years old and is seen for additional evaluation requested from prior study. The patient has no family history of breast cancer. The patient has no personal history of cancer. VIEWS: The views performed were: right craniocaudal spot compression with tomosynthesis; right mediolateral oblique spot compression with tomosynthesis; and right mediolateral with tomosynthesis. FILMS COMPARED: The present examination has been compared to prior imaging studies performed at [facility] on 05/30/2020 and 07/02/2020. This study has been interpreted with the assistance of computer-aided detection. MAMMOGRAM FINDINGS: There are scattered fibroglandular densities. Finding 1: There are stable benign appearing calcifications seen in the right breast. Finding 2: There is a focal asymmetry measuring 7 x 8 x 10 mm with indistinct margins seen in the anterior region of the right breast at 9 o'clock. No associated abnormal ultrasound finding. IMPRESSION: FINDING 1: STABLE CALCIFICATIONS IN THE RIGHT BREAST ARE BENIGN. FINDING 2: FOCAL ASYMMETRY IN THE RIGHT BREAST IS PROBABLY BENIGN. FOLLOW-UP IN 6 MONTHS IS RECOMMENDED. FINDINGS AND RECOMMENDATIONS WERE DISCUSSED WITH THE PATIENT PRIOR TO LEAVING THE FACILITY. ALL QUESTIONS ANSWERED. THE RESULTS OF THIS EXAM WERE SENT TO THE PATIENT. ACR BI-RADS Category 3 - Probably benign finding - short interval follow-up suggested. [facility] will notify the patient of the need for additional imaging services. MAMMOGRAPHY NOTE: 1. A negative mammogram report should not delay a biopsy if a dominant of clinically suspicious mass is present. 2. Approximately 10% to 15% of breast cancers are not detected by mammography. 3. Adenosis and dense breasts may obscure an underlying neoplasm. Reported by: JEM MONTOYA MD Electonically Signed: [id number]
--- NOTE | 2020-07-02 14:38 | ULT ---
EXAM: RIGHT BREAST ULTRASOUND: 07/02/20 HISTORY: Follow-up asymmetric density from prior mammogram. The 9 o'clock retroareolar region of the right breast is evaluated. No evidence for solid or cystic m ass. Slightly asymmetric breast tissue. IMPRESSION: No evidence for solid or cystic ultrasonic mass to account for asymmetric density seen on mammogram. BIRADS 3: Probably Benign Finding Initial Short-Interval Follow-Up Suggested Initial short-term follow up (usually 6-month) right unilateral diagnostic mammogram is recommended for further assessment. POS: OFF
== END 2020-07-02 13:31 | disposition home or self-care (01) ==
LOC: BICMAMMO 13:30
DX: R92.2 Inconclusive mammogram (principal); N64.89 Other specified disorders of breast; R92.1 Mammographic calcification found on diagnostic imaging of breast
CPT/HCPCS: 76642; 77065; G0279

== ENCOUNTER 2022-02-01 13:09 | Outpatient (CLI) | payer MEDICARE | END 2022-02-01 13:10 | disposition home or self-care (01) | LOC: BICMAMMO 13:09 | PROVIDERS: ATTEND Registered Nurse | DX: R92.8 Other abnormal and inconclusive findings on diagnostic imaging of breast (principal); Z13.820 Encounter for screening for osteoporosis; M85.852 Other specified disorders of bone density and structure, left thigh; Z78.0 Asymptomatic menopausal state | CPT/HCPCS: 77066; 77080; G0279 ==

== ENCOUNTER 2023-08-24 13:05 | Outpatient (CLI) | payer MEDICARE ==
[~2023-08-24 13:05] MED LIST changes: +Iopamidol 370 76% 100 ML VIAL ONE; -Prevnar 13-Val Conj/PF 0.5 ML SYRINGE IM ONE
== END 2023-08-24 13:06 | disposition home or self-care (01) ==
LOC: CT 13:05
PROVIDERS: ATTEND Otolaryngology Plastic Surgery within the Head & Neck
DX: R05.3 Chronic cough (principal); R91.8 Other nonspecific abnormal finding of lung field
CPT/HCPCS: 71270; 82565; Q9967

== ENCOUNTER 2024-05-28 12:13 | Outpatient (CLI) | payer MEDICARE ==
[2024-05-28] MEDS ORDERED: Iopamidol 370 76% 100 ML VIAL ONE (15:28)
== END 2024-05-28 12:14 | disposition home or self-care (01) ==
LOC: BICCT 12:13
PROVIDERS: ATTEND Internal Medicine
DX: J84.9 Interstitial pulmonary disease, unspecified (principal); J84.10 Pulmonary fibrosis, unspecified; R91.1 Solitary pulmonary nodule
CPT/HCPCS: 36415; 71260; 82565; Q9967

== ENCOUNTER 2025-04-23 12:50 | Outpatient (CLI) | payer MEDICARE | END 2025-04-23 12:51 | disposition home or self-care (01) | LOC: BICMAMMO 12:50 | PROVIDERS: ATTEND Registered Nurse | DX: Z12.31 Encounter for screening mammogram for malignant neoplasm of breast (principal); Z78.0 Asymptomatic menopausal state | CPT/HCPCS: 77063; 77067; 77080 ==